=== PATIENT | male | born 1970 | race African-American/Black ===

== ENCOUNTER 2016-10-14 23:48 | Emergency (ER) | payer OTHER ==
--- NOTE | ~2016-10-14 | CT98 ---
[facility] A Service of [facility] RADIOLOGY TEXT RESULTS PATIENT: ELIO WELLER LOCATION: [facility] : 74 UNIT #: [id number] AGE: [address]: Manjeet Parsons SEX: M ORDER DR: [id number] [facility] [address] [place], [place] [address] [id number] MR#: [id number] Acc #: [id number] NAME: ELIO WELLER : 1970 SEX: M STUDY DATE/TIME: 10/15/2016 0:31 UNIT: [facility] ROOM: STUDY DESCRIPTION: CT Lumbar Spine Wo Cont Attending Physician: Manjeet Parsons P.A.-C. Referring Physician: Primary Care Physician No Ordering Physician: Manjeet Parsons P.A.-C. Primary Care Physician: Primary Care Physician No MEDICAL IMAGING REPORT This report is preliminary unless electronic signature is present EXAM CT lumbar spine without contrast. INDICATIONS Left flank and lower back pain radiating in the left leg for the past 2 days. Radiculopathy lumbar region. PROCEDURE Unenhanced CT of the lumbar spine. This CT exam was performed with one or more of the following radiation dose reduction techniques: automatic exposure control, adjustment of mA and/or kV according to patient size, and iterative reconstruction. COMPARISON None. FINDINGS Lumbar bodies have normal height. Overall alignment is preserved. There is a Schmorl's node inferior endplate of L4. No fracture. L1-L2: No significant central canal or neural foraminal narrowing. L2-L3: Mild circumferential disc osteophyte. Mild facet arthrosis with moderate central canal narrowing. No significant neural foraminal narrowing. L3-L4: Circumferential disc osteophyte. Facet arthrosis. At least moderate central canal narrowing. Probably mild bilateral neural foraminal narrowing. L4-L5: Broad-based posterior disc osteophyte. Facet arthrosis. At least [facility] A Service of [facility] RADIOLOGY TEXT RESULTS PATIENT: ELIO WELLER LOCATION: [facility] : 74 UNIT #: [id number] AGE: [address]: Manjeet Parsons SEX: M ORDER DR: moderate central canal narrowing. Mild to moderate bilateral neural foraminal narrowing. L5-S1: Broad-based posterior disc bulge. Mild central canal narrowing. Bilateral facet arthrosis. There is mild left and moderate right neural foraminal narrowing. A 2.4 cm cyst in the left kidney. IMPRESSION Yenf-sn-edysvvgi multilevel degenerative disc disease. Changes are most significant at L4-L5, where there is a broad-based posterior disc osteophyte. Moderate to moderately severe central canal narrowing. Refer to the [id number] dictation above. Dictated by... Diogo Katz M.D. THIS IS AN ELECTRONICALLY VERIFIED REPORT Diogo Katz M.D. at 10/19/2016 7:30 AM NIKOS/ashleigh TD: 10/15/2016 03:21 JOB #: [id number] MEDICAL IMAGING REPORT Page 1 of 1 COPY
[2016-10-15 00:23] LABS: BASOPHIL% 0.3 % (0-2.5); EOSINOPHIL# 0.1 X10e3 (0-0.7); EOSINOPHIL% 1.3 % (0.0-7.0); HEMOGLOBIN 13.6 gm/dL (13.0-16.0); LYMPHOCYTE# 2.7 X10e3 (1.0-3.5); LYMPHOCYTE% 30.5 % (17.0-45.0); MEAN CELL VOLUME 72.6 FL (83-96); MEAN CORPUSCULAR HGB CONC 31.7 g/dL (30-36); MEAN PLATELET VOLUME 9.5 FL (6.5-11.5); MONOCYTE# 0.9 X10e3 (0-1.0); MONOCYTE% 10.1 % (3.0-12.0); NEUTROPHIL# 5.2 X10e3 (1.5-7.1); NEUTROPHIL% 57.8 % (40-75); PLATELET COUNT 193 X10e3 (140-420); RED BLOOD COUNT 5.93 X10e (3.90-5.60); RED CELL DISTRIBUTION WIDTH 15.2 % (11.0-15.5)
[2016-10-15 00:26] LABS: DIFF IND NO
[2016-10-15 00:48] LABS: URINE SOURCE CLEAN CATCH
[2016-10-15 00:52] LABS: BUN/CREATININE RATIO 19.09; CALCIUM SERUM 9.1 mg/dL (8.4-10.2); CREATININE SERUM 1.1 mg/dL (0.6-1.4); GLOM FILT RATE Estimated 94.1 mL/min (>60); POTASSIUM 3.7 mmol/L (3.5-5.1)
[2016-10-15 00:53] LABS: URINE APPEARANCE CLEAR; URINE BILIRUBIN NEG (NEG); URINE BLOOD NEG (NEG); URINE COLOR DK YELLOW; URINE GLUCOSE NEG (NEG); URINE KETONE TRACE (NEG); URINE LEUKOCYTE ESTERASE NEG (NEG); URINE NITRATE NEG (NEG); URINE PH 5.5 (5-8); URINE PROTEIN NEG (NEG); URINE SPECIFIC GRAVITY 1.041 (1.003-1.035)
[2016-10-15 00:59] LABS: CULTURE INDICATED? NO
== END 2016-10-15 02:19 | disposition home or self-care (01) ==
LOC: CED 23:48
PROVIDERS: Physician Assistant
DX: M54.42 Lumbago with sciatica, left side (principal); F17.210 Nicotine dependence, cigarettes, uncomplicated
CPT/HCPCS: 36415; 72131; 80048; 81003; 85025; 85652; 86140; 96361; 96374; 96375; 99284; J2270; J2405; J2930